=== PATIENT | male | born 1970 | race Two or more races ===

== ENCOUNTER 2022-11-11 12:04 | Outpatient (CLI) | payer OTHER | END 2022-11-11 12:15 | disposition home or self-care (01) | LOC: TOM 12:04 | PROVIDERS: ATTEND Surgery | DX: K43.6 Other and unspecified ventral hernia with obstruction, without gangrene (principal) ==

== ENCOUNTER 2022-12-13 06:26 | Day surgery (SDC) | payer OTHER ==
[~2022-12-13] VITALS: Ht 175.3 cm; Wt 74.4 kg
== END 2022-12-13 13:45 | disposition home or self-care (01) ==
LOC: CIR.AMB 06:26
PROVIDERS: ATTEND Surgery
DX: K43.6 Other and unspecified ventral hernia with obstruction, without gangrene (principal); Z20.822 Contact with and (suspected) exposure to COVID-19